=== PATIENT | female | born 1950 | race Caucasian/White ===

== ENCOUNTER → 2016-07-14 | Outpatient (CLI) | payer MEDICARE ==
[~2016-07-14] MED LIST: ASPI-110 PO; ASPI325T PO; ATOR40TA16 PO; COEN400C PO; COZA100T PO; DULO20 PO; FISH1200 PO; LIPI40TA PO; LOSA100T PO; METO50TA PO; OMEG12002 PO; OMEP20CA5 PO; OXYC-360 PO; OXYC-432 PO; OXYC1SOL5 PO; SACC1CAP3 PO
[2016-07-14 10:02] LABS: AUTOMATED NEUTROPHIL # 3.5 TH/MM3 (1.8-7.7); BASOPHIL # 0.1 TH/MM3 (0-0.2); EOSINOPHIL # 0.2 TH/MM3 (0-0.4); EOSINOPHIL % 2.8 % (0.0-4.0); HEMATOCRIT 38.7 % (35.0-46.0); HEMO FLAGS DIFF FINAL; LYMPH % 27.7 % (9.0-44.0); LYMPHOCYTE # 1.6 TH/MM3 (1.0-4.8); MEAN CELL VOLUME 84.4 FL (80.0-100.0); MEAN CORPUSCULAR HEMOGLOBIN 28.3 PG (27.0-34.0); MEAN CORPUSCULAR HGB CONC 33.5 % (32.0-36.0); MONO % 6.1 % (0.0-8.0); NEUT % 62.4 % (16.0-70.0); PLATELET COUNT 211 TH/MM3 (150-450); RED BLOOD COUNT 4.58 MIL/MM3 (4.00-5.30); RED CELL DISTRIBUTION WIDTH 15.2 % (11.6-17.2); WHITE BLOOD COUNT 5.7 TH/MM3 (4.0-11.0)
[2016-07-14 10:27] LABS: ALKALINE PHOSPHATASE 69 U/L (45-117); ALT (GPT) 25 U/L (10-53); ANION GAP 8 MEQ/L (5-15); AST (GOT) 19 U/L (15-37); BLOOD UREA NITROGEN 20 MG/DL (7-18); CHLORIDE 105 MEQ/L (98-107); GLOMERULAR FILTRATION RATE 38 ML/MIN (>89); GLUCOSE,FASTING 103 MG/DL (74-99); HDL CHOLESTEROL 79.9 MG/DL (40.0-60.0); LDL CHOLESTEROL 78 MG/DL (0-99); POTASSIUM 4.4 MEQ/L (3.5-5.1); SODIUM (NA) 140 MEQ/L (136-145); TOTAL BILIRUBIN ADULT 0.6 MG/DL (0.2-1.0); URIC ACID 6.6 MG/DL (2.6-6.0)
== END ==
LOC: CLAB 09:38
PROVIDERS: ATTEND Family Medicine
DX: I10 Essential (primary) hypertension (principal); E78.2 Mixed hyperlipidemia; N28.9 Disorder of kidney and ureter, unspecified; K21.9 Gastro-esophageal reflux disease without esophagitis; M10.00 Idiopathic gout, unspecified site
CPT/HCPCS: 36415; 80053; 80061; 84550; 85025

== ENCOUNTER 2016-10-31 07:47 | Inpatient (IN) | payer MEDICARE ==
[~2016-10-31] VITALS: Ht 160 cm; Wt 119.6 kg
[2016-11-12] MEDS ORDERED: ATOR40TA16 PO (10:26)
[2016-11-12] MEDS ORDERED: LOSA100T PO (10:26)
[2016-11-12] MEDS ORDERED: OXYC-432 PO (10:26)
[2016-11-12] MEDS ORDERED: COEN400C PO (10:26)
[2016-11-12] MEDS ORDERED: ASPI-110 PO (10:26)
[2016-11-12] MEDS ORDERED: FISH1200 PO (10:26)
[2016-11-12] MEDS ORDERED: SACC1CAP3 PO (10:26)
[2016-11-12] MEDS ORDERED: METO50TA PO (10:26)
[2016-11-12] MEDS ORDERED: DULO20 PO (10:26)
--- NOTE | 2016-11-27 12:39 | MH ---
cc: CHRISTO OCASIO DATE OF ADMISSION: 12/03/2016 ADMISSION DIAGNOSIS Osteoarthritis of the left shoulder, complete rotator cuff tear left shoulder and pain of the left shoulder. HISTORY OF PRESENT ILLNESS The patient is a 66-year-old white female who has had a rather lengthy history of pain involving her left shoulder region extending back at least 5 years. She had noted the gradual onset of soreness generalized about the shoulder area unrelated to injury or unusual activity. During this interval of time she conformed to conservative management which included taking both Naprosyn and Percocet for pain management. Her pain persisted for which she was seen by the undersigned physician in March of 2014. At that time x-ray studies of the left shoulder revealed obvious degenerative change with pronounced narrowing of the glenohumeral articulation. The patient elected to continue with conservative management for which she was prescribed meloxicam 15 mg daily and initiated into physical therapy. She continued with this routine over the following few years during which time she became progressively symptomatic with pain involving her right shoulder. She subsequently underwent a right reverse shoulder arthroplasty in October of 2015, reporting an uneventful recovery thereafter. During this interval of time she noted lingering symptoms involving her left shoulder but became increasingly more symptomatic for which she returned to the office in July of this year. At that time she was reporting obvious difficulty conforming to activities of daily living for which she had continued to take naproxen in addition to a baby aspirin with minimal benefit described. Her x-ray studies revealed obvious degenerative changes with significant compromise of the glenohumeral joint and hypertrophic bony reaction. The patient subsequently underwent a CT scan evaluation of her left shoulder. The results of which identified severe glenohumeral joint arthrosis with a linear full-thickness tear of the distal supraspinatus and infraspinatus tendon. The patient continued with pain about her shoulder area for which she expressed her desire to proceed with a more definitive course of treatment. Once again the involvement of reverse shoulder arthroplasty was outlined in detail with emphasis being made that the decision to proceed with surgery would be left entirely to the patient's discretion. The patient indicated that she had definitely arrived at that point in time and expressed her desire to proceed accordingly. In compliance with her wishes she was scheduled for admission at this time in order that left reverse shoulder arthroplasty be accomplished. PAST MEDICAL HISTORY/HOSPITALIZATIONS AND SURGERIES 1. In addition to her right reverse shoulder arthroplasty include 2. Tonsillectomy. 3. Abdominal hysterectomy. 4. Cholecystectomy. 5. Bilateral Lasik surgery. 6. [place] teeth extraction. 7. Reduction mammoplasty. 8. Panendoscopy. 9. Arthroscopic surgery of the knees. 10. Hemiarthroplasty left knee. 11. Total knee arthroplasty right knee. 12. Medical management for gastritis and pyloric stenosis as well as a history of 13. Non A, non B hepatitis. 14. She has also undergone lumbar laminectomy with fusion. MEDICAL ILLNESS 1. Hypertension. 2. Anxiety. 3. Elevated cholesterol. 4. Arthritis. MEDICATIONS Current medications: 1. Metoprolol 50 mg twice daily. 2. Losartan 100 mg daily. 3. Hydrochlorothiazide 25 mg daily. 4. Duloxetine 30 mg daily. 5. Aleve 220 mg daily. 6. Lipitor 40 mg daily. 7. Co Q-10 200 mg daily. 8. Fish oil 1200 mg twice daily. 9. Probiotic daily. 10. Percocet 5/325 p.r.n. 11. 81 mg aspirin tablet daily. ALLERGIES The patient describes drug allergies to: ZYVOX WHICH HAS CAUSED HIVES AND SWELLING. HYDROCODONE HAS BEEN ASSOCIATED WITH NAUSEA AND VOMITING. The patient does tolerate oxycodone. REVIEW OF SYSTEMS She wears glasses. Occasional sinus congestion. No headache, seizure or syncope. No epistaxis. Auditory acuity intact. No tinnitus. No bleeding gums or dysphagia. Denies cough, shortness of breath, upper respiratory infection. She has had pneumonia in the past. No tuberculosis. No angina or heart disease. She is medically managed for hypertension. Appetite good. Bowel movements are regular. History of chronic gastritis status post cholecystectomy. History of hemorrhoids and kidney stones. No urinary tract infection. No previous fractures. No psychiatric illness. Her remaining review of systems is unremarkable and noncontributory. FAMILY HISTORY The patient has been for at least 38 years. She has one son and one daughter, both indicated to be in good health. Her family history is positive for heart disease. SOCIAL HISTORY The patient completed a college degree. 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 Denies active use of tobacco and ethanol. PHYSICAL EXAMINATION VITAL SIGNS: Height 5 feet 3 inches, weight 253 pounds. GENERAL: An alert, oriented and responsive 66-year-old white female sitting quietly upon the examination table with no apparent distress. HEENT: Pupils are equally round and reactive to light. Extraocular movements full. Sclerae are clear. External nares clear. External auditory canals clear. Dental intact. Mucous membranes pink and moist. Pharynx clear. NECK: Supple. Active mobility without pain. Carotid pulse palpable bilaterally. Trachea midline. Thyroid without enlargement. LUNGS: Clear to auscultation and percussion. No CVA tenderness. No discomfort throughout the dorsolumbar spine. HEART: Irregular rhythm without murmur or gallop. ABDOMEN: Abdomen is obese, soft, nontender. Bowel sounds present. PELVIC: Per primary care physician. EXTREMITIES: Left shoulder, there is tenderness about the anterior aspect of the shoulder without palpable deformity. Limited mobility of the shoulder joint with the patient able to actively posture her hand above her head but not fully extended to a full overhead orientation. Cross-arm posturing with placing the left hand on the right shoulder is actively accomplished, internal rotation to the posterior waist level, abduction is limited at approximately 60 degrees, crepitation is elicited about the glenohumeral joint. Drop arm test positive. Mild weakness of both internal and external rotation. Hair Machine Operator strength intact. Sensory intact. NEUROLOGIC: Cranial nerves II-XII grossly intact. IMPRESSION Osteoarthritis left shoulder, complete rotator cuff tear left shoulder, pain left shoulder. PLAN Left reverse shoulder arthroplasty. The nature of the planned surgical procedure, the potential complications and risks associated, the expectations of surgery and the consent form were thoroughly reviewed with the patient prior to her admission to the hospital. Blanca has indicated her full understanding regarding all of the above and given consent to proceed with treatment as outlined. Medical evaluation and clearance for surgery will be completed by her primary care physician Dr. Cande Flores. Christo Ocasio MD NBS/TLL /11:51 AM /12:18 PM
[2016-12-03] MEDS ORDERED: INSULIN HUMAN REGULAR 1,000 UNITS/10 ML VIAL SQ PRN (05:45)
[2016-12-03] MEDS ORDERED: LACTATED RINGER'S 1000 ML IV PRN (05:45)
[2016-12-03] MEDS ORDERED: CHLORHEXIDINE GLUCONATE 2 % 1 PACK (2 CLOTHS) TOPICAL PRN (05:45)
[2016-12-03] MEDS ORDERED: POVIDONE IODINE 5% (ANTISEPSIS KIT) 4 APPLICATIONS EACH NARE PRN (05:45)
[2016-12-03] MEDS ORDERED: METOPROLOL TARTRATE 25 MG TAB PO PRN (05:45)
[2016-12-03] MEDS ORDERED: SODIUM CHLORID 0.9% 500 ML IV PRN (05:45)
[2016-12-03] MEDS ORDERED: POVIDONE IODINE 7.5% SCRUB 118 ML BOTTLE TOPICAL SCH (06:00)
[2016-12-03] MEDS ORDERED: ceFAZolin 2 GM PREMIX 50 ML IV SCH (06:00)
[2016-12-03] MEDS ORDERED: UBID200C3 PO (06:01)
[2016-12-03 06:02] VITALS: BP 169/81; PULSE 73; RESP 18; TEMP 98.8; O2SAT 96
[2016-12-03] MEDS ORDERED: ceFAZolin INJ 1,000 MG VIAL ONE (06:21)
[2016-12-03] MEDS ORDERED: ACETAMINOPHEN 1000 MG/100 ML VIAL IV ONE (06:23)
[2016-12-03] MEDS ORDERED: DEXAMETHASONE SOD PHOS 4 MG/ML VIAL ONE (06:23)
[2016-12-03] MEDS ORDERED: FAMOTIDINE 20 MG/2 ML VIAL ONE (06:23)
[2016-12-03] MEDS ORDERED: ONDANSETRON HCL 4 MG/2 ML VIAL ONE (06:43)
[2016-12-03] MEDS ORDERED: APREPITANT 40 MG CAP ONE (06:43)
[2016-12-03] MEDS ORDERED: TRANEXAMIC ACID 1 GM PRIOR TO PROCEDURE IV SCH ×2 (07:00)
[2016-12-03] MEDS ORDERED: ROPIVACAINE 0.5% PF INJ 30 ML VIAL NERV BLOCK ONE (08:44)
[2016-12-03] MEDS ORDERED: TRANEXAMIC ACID 1 GM POST-OP IV SCH ×2 (09:30)
[2016-12-03] MEDS ORDERED: Post-op Orders (for Pharmacy) MISC XX ONE (10:07)
[2016-12-03] MEDS ORDERED: DO NOT ADM ANY ANTICOAGULANT DRUGS PRN (10:07)
[2016-12-03] MEDS ORDERED: *ONDANSETRON 4 MG VIAL PERIprocedural Use ONLY ONE (10:12)
[2016-12-03] MEDS ORDERED: fentaNYL CITRATE 250 MCG/5 ML AMP ONE (10:18)
[2016-12-03] MEDS: DEXT 5%-NACL 0.45% 1000 ML INJ 1,000 ML IV SCH ×3 (10:18→21:03)
[2016-12-03] MEDS ORDERED: MIDAZOLAM HCL 2 MG/2 ML VIAL ONE (10:18)
[2016-12-03] MEDS ORDERED: ONDANSETRON HCL 4 MG/2 ML VIAL IVP PRN (10:30)
[2016-12-03] MEDS ORDERED: MISCELLANEOUS PHARMACY INFORMATION XX ONE (10:30)
[2016-12-03] MEDS ORDERED: ZOLPIDEM TARTRATE 5 MG TAB PO PRN (10:30)
[2016-12-03] MEDS ORDERED: diphenhydrAMINE HCL 25 MG CAP PO PRN (10:30)
[2016-12-03] MEDS ORDERED: oxyCODONE/ACETAMINOPHEN 5 MG/325 MG TAB PO PRN (10:30)
[2016-12-03] MEDS ORDERED: TRANEXAMIC ACID INJ 1,000 MG in SODIUM CHLORIDE 0.9% INJ 100 ML IV SCH (10:30)
[2016-12-03] MEDS ORDERED: SODIUM CHLORIDE 0.9% FLUSH 5 ML FLUSH IVF PRN (10:30)
[2016-12-03] MEDS ORDERED: BISACODYL 10 MG SUPP RECTAL PRN (10:30)
[2016-12-03] MEDS ORDERED: NALOXONE HCL 0.4 MG/ML AMP IV PRN (10:30)
--- NOTE | 2016-12-03 10:49 | MP ---
cc: CHRISTO OCASIO DATE OF SURGERY: 12/03/2016 PREOPERATIVE DIAGNOSIS 1. Osteoarthritis of the left shoulder. 2. Complete rotator cuff tear left shoulder. 3. Pain left shoulder. POSTOPERATIVE DIAGNOSIS 1. Osteoarthritis of the left shoulder. 2. Complete rotator cuff tear left shoulder. 3. Pain left shoulder. PROCEDURE Left reverse shoulder arthroplasty. SURGEON Ninfa ANESTHESIA General endotracheal. INDICATIONS A 66-year-old white female with a lengthy history of pain involving her left shoulder extending back at least five years. She noted the gradual onset of soreness generalized about the shoulder area unrelated to injury or unusual activity. During this interval of time she conformed to conservative management which included taking Naprosyn and Percocet for pain management. Her pain persisted for which she was later seen by the undersigned physician in March 2014. At that time x-ray studies revealed obvious degenerative changes with pronounced narrowing of the glenohumeral articulation. The patient elected to continue with conservative management for which she was prescribed meloxicam 15 mg daily and initiated into physical therapy. She continued with his routine over the following few years at which time she became progressively more symptomatic with pain involving her shoulder area. She did undergo a right reverse shoulder arthroplasty in October 2015 reporting an uneventful recovery thereafter. During this interval of time she noted lingering symptoms involving her left shoulder which became increasingly more symptomatic for which she returned to the office in July of this year. At that time she reported obvious difficulties conforming to activities of daily living for which she had continued to take naproxen in addition to a baby aspirin was minimal benefit described. Her current x-ray studies revealed obvious degenerative changes with significant compromise of the glenohumeral joint and hypertrophic bony reaction. The patient subsequently underwent a CT scan evaluation of the left shoulder the results of which identified severe glenohumeral joint arthrosis with a linear full-thickness tear of the distal supraspinatus and infraspinatus tendon. The patient continued to experience pain about her shoulder area for which she expressed her desire to proceed with a more definitive course of treatment. Once again the involvement of reverse shoulder arthroplasty was outlined in detail with emphasis being made that the decision to proceed with surgery would be left entirely to the patient's discretion. The patient indicated that she had definitely arrived at that point in time and expressed her desire to proceed accordingly. In compliance with her wishes she was scheduled for admission at this time in order that left reverse shoulder arthroplasty be accomplished. FORMAT Following the induction of satisfactory general anesthesia by endotracheal intubation as completed per the Department of Anesthesia, the patient was positioned upon the operating table in a modified beach-chair configuration. A sheet roll was established along the vertebral border of the left scapula and the left shoulder and upper extremity proper were isolated with a U-drape. Thereafter the shoulder and upper extremity proper were prepped with Betadine solution and draped into a sterile field in the routine manner. Prior to initiation of the actual procedure the standard timeout protocol was completed, all parameters appropriately addressed and confirmed by operating room personnel. A standard anterior approach to the shoulder was initiated through a sharp skin incision extending from the inferior margin of the clavicle oriented overlying the deltopectoral interval and extending distally to the axillary crease. The incision was developed through underlying subcutaneous tissue with hemostasis maintained by electrocautery. By deepening dissection the deltopectoral interval was identified, distally the cephalic vein was exposed and in a distal to proximal orientation the interval was developed with the cephalic vein retracted in a lateral orientation with a cuff of deltoid musculature. Digital maneuvering facilitated release of subdeltoid adhesions and thereafter the coracoid process was utilized as an anatomical landmark. With the shoulder maintained in a slightly externally rotated posture the biceps tendon was exposed. A limited release of the pectoralis insertion was completed and thereafter the biceps tendon was divided proximally and the distal segment being tenodesed to the stump of the pectoralis tendon the excess portion of the biceps tendon being excised. The three sister circumflex vessels were identified, clamped and coagulated. With the shoulder again maintained in an externally rotated orientation the subscapularis tendon was divided in a superior to inferior orientation along the margin of the anatomical neck of the humerus facilitating exposure of the humeral head as it was delivered into the wound. The more medial aspect of the subscapularis tendon was tagged with #1 Tycron suture as well as a minimal residual cuff of tissue being maintained about the lesser tuberosity. With the humeral head fully exposed an entry point was facilitated superiorly adjacent to the bicipital groove facilitating entry into the humeral shaft. Sequential rasping was accomplished from 6 through 13 mm. With the [address] the external cutting guide was oriented approximately 30 degrees of retroversion and the humeral head thereafter resected. Examination revealed significant degenerative changes with complete erosion of articular cartilage and subchondral bone exposed. Residual osteophytes and hypertrophic bone around the margin of the proximal humerus were resected with rongeur and thereafter sequential broaching was completed from 7 through 13 mm. The 13 mm broach was determined to be a stable fit. The covering cap was positioned over the broach and attention was thereafter redirected to the glenoid. Retractors were placed superiorly, posteriorly and anteriorly where after the residual stump of the biceps tendon was resected as was the glenoid labrum and the middle and inferior glenohumeral ligaments. With the glenoid adequately exposed in a 360 degree orientation hash antoine were placed from the 12-6 o'clock position and the 9-3 o'clock position facilitating orientation of the central portion of the glenoid. A guide pin was placed in this central point utilizing the glenoid guide with approximately 10 degrees of inferior tilt. With the guide pin in place the step-down reamer was passed over the guide pin creating a central peg hole. Thereafter a 25 mm glenosphere mini baseplate was firmly seated and thereafter a 35 mm central screw was placed and peripheral locking screws in the 12 and 6 o'clock position utilizing 25 and 20 mm screws respectively and 15 mm locking screws in the anterior and posterior position. With the baseplate firmly seated a 36 mm glenosphere with maximum inferior offset was firmly attached to the baseplate. Attention was redirected to the proximal humerus. A trial reduction followed utilizing a 44 x 36 mm humeral bearing initially utilizing the standard and secondary trial with the +3 mm which was determined to be the more stable fit. The shoulder was readily reduced and carried through a passive range of motion with stability being demonstrated throughout the arc of mobility. An open dislocation was completed and trial components being removed the canal was thoroughly irrigated and dried. Two additional drill holes were placed in the proximal humerus for additional insertion of Tycron suture and thereafter the 13 mm mini humeral stem was firmly seated to which a 44 x 36 mm +3 humeral bearing attached to a 44 mm humeral tray was positioned and an open reduction completed and repeat range of motion again noted stability as previously described. Final irrigation was accomplished with hemostasis maintained. The subscapularis tendon was repaired with the previously attached #1 Tycron suture. The deltopectoral interval was repaired with a 0 Vicryl suture and the remaining portion of the wound was closed in layers in the routine manner. Skin margins were re-approximated with a running subcuticular 3-0 Vicryl suture over which Steri-Strips were applied. Xeroform gauze and a bulky dry sterile dressing were placed. The extremity was supported by an arm sling. Anesthesia was discontinued and the patient thus transferred to a hospital bed and returned to the recovery room in satisfactory condition having tolerated her operative procedure well. Estimated blood loss was approximately 200 cc as determined per Anesthesia. All implants were of the [employer] analytical research program manager. Christo Ocasio MD NBS/BT /10:11 AM /10:33 AM
--- NOTE | 2016-12-03 11:54 | RADRPT ---
EXAM DATE/TIME: 12/03/2016 10:52 [facility] COMPARISON: CHEST PA & LAT, October 16, 2015, 11:28. SHOULDER RIGHT (1VW), October 31, 2015, 11:11. INDICATIONS : Post op, left shoulder replacement. MEDICAL HISTORY : None. SURGICAL HISTORY : None. ENCOUNTER: Initial ACUITY: 1 day PAIN SCORE: 0/10 LOCATION: Left shoulder FINDINGS: Patient is status post placement of a left shoulder prosthesis. There is good position and alignment of the prosthesis and bony structures. The bony structures are grossly intact. Postsurgical changes a re present. CONCLUSION: Good position and alignment on this postoperative examination. Mansoor Farris MD on December 03, 2016 at 11:51 Board Certified Radiologist. This report was verified electronically.
[2016-12-03] MEDS: MORPHINE SULFATE 30 MG/30 ML PCA IV SCH (12:43)
[2016-12-03] MEDS: PCA - TOTAL MG MORPHINE DELIVERED PER SHIFT SCH ×2 (14:00→22:00)
[2016-12-03] MEDS ORDERED: PROPOFOL 200 MG/20 ML AMP IV ONE (14:26)
[2016-12-03] MEDS ORDERED: ePHEDrine/NS 25 MG/5 ML SYR IV ONE (14:26)
[2016-12-03] MEDS ORDERED: PHENYLEPHRINE HCL 10 MG/ML VIAL IV ONE (14:27)
[2016-12-03] MEDS ORDERED: LACTATED RINGER'S 1000 ML INJ 1,000 ML IV ONE (14:27)
[2016-12-03] MEDS ORDERED: SODIUM CHLOR 0.9% 250 ML INJ 250 ML IV ONE (14:27)
[2016-12-03] MEDS ORDERED: NEOSTIGMINE 3 MG/3 ML SYR IV ONE (14:27)
[2016-12-03] MEDS ORDERED: PHENYLEPH/NS 1000 MCG/10 ML SYR IV ONE (14:27)
[2016-12-03 15:57] VITALS: BP 154/71; PULSE 75; RESP 17; TEMP 96.1; O2SAT 93
[2016-12-03 18:29] VITALS: O2SAT 93
--- NOTE | 2016-12-03 18:56 | PD.CONS ---
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 ocasio's service for chronic left shoulder pain worsening over time. Patient states increasing pain and decreasing range of motion prompted the surgery. Patient currently is on a LIBRARY ASSISTANT pump with good pain control. Denies any nausea vomiting or any pain currently. [facility] factors. Review of Systems Constitutional: DENIES: Fever, Weight loss, Chills, Change in appetite Eyes: DENIES: Blurred vision, Double Vision Ears, nose, mouth, throat: DENIES: Tinnitus, Ear Pain, Epistaxis, Odynophagia Respiratory: DENIES: Cough, Hemoptysis, Sputum production, Shortness of breath Cardiovascular: DENIES: Chest pain, Palpitations, Dyspnea on Exertion, Lower Extremity Edema, Orthopnea Gastrointestinal: DENIES: Black stools, Bloody stools, Difficulty Swallowing, Anorexia Genitourinary: DENIES: Urgency, Hematuria, Vaginal discharge Musculoskeletal: DENIES: Joint pain, Stiffness Integumentary: DENIES: Pruritus Hematologic/lymphatic: DENIES: Bruising Immunologic/allergic: DENIES: Urticaria Neurologic: DENIES: Headache, Speech Problems, Tremor Psychiatric: DENIES: Suicidal Ideation, Homicidal Ideation Past Family Social History Allergies: Coded Allergies: Bactrim (Verified Allergy, Severe, SWELLING, 12/03/16) Zyvox (Verified Allergy, Severe, LIPS AND EYES SWELL, 12/03/16) Hydrocodone (Verified Adverse Reaction, Severe, NAUSEA & VOMITTING, 12/03/16 ) Talwin (Verified Adverse Reaction, Severe, NAUSEA/VOMITING, 12/03/16) Past Medical History Hypertension Osteoarthritis Past Surgical History Multiple surgeries in the past Tonsillectomy, abdominal hysterectomy, cholecystectomy, Lasix surgery, reduction mammoplasty, arthroscopic surgery of the knees, hemiarthroplasty of the left knee, total knee arthroplasty right knee Reported Medications Reported medications metoprolol 50 mg daily twice a day losartan 100 mg daily. Paroxetine 30 mg daily Lipitor 40 mg daily coenzyme Q, fish oral, Percocet when necessary, aspirin 81 mg. Active Ordered Medications See EMR Family History Noncontributory Social History Quit smoking in 1982 Very rare alcohol use History of substance abuse Physical Exam Vital Signs Vital Signs Date Time Temp Pulse Resp B/P Pulse Ox O2 Delivery O2 Flow Rate FiO2 12/03/16 15:57 96.1 75 17 154/71 93 12/03/16 15:45 98.5 81 15 119/56 95 Nasal Cannula 2 12/03/16 15:30 78 15 114/57 95 Nasal Cannula 2 12/03/16 15:00 81 17 118/56 95 Nasal Cannula 2 12/03/16 14:30 80 17 119/56 95 Nasal Cannula 2 12/03/16 14:00 81 16 116/57 95 Nasal Cannula 2 12/03/16 13:30 79 15 120/59 97 Nasal Cannula 2 12/03/16 13:00 76 16 124/59 97 Nasal Cannula 2 12/03/16 12:43 15 12/03/16 12:30 68 17 120/56 97 Nasal Cannula 2 12/03/16 12:00 77 16 127/60 95 Nasal Cannula 2 12/03/16 11:45 67 15 123/58 95 Nasal Cannula 2 12/03/16 11:15 66 15 118/58 94 Nasal Cannula 2 12/03/16 11:00 60 15 127/56 95 Nasal Cannula 3 12/03/16 10:45 68 14 122/60 93 Nasal Cannula 3 12/03/16 10:30 69 15 129/59 92 Nasal Cannula 3 12/03/16 10:13 98.8 87 14 134/79 93 Nasal Cannula 3 12/03/16 06:02 98.8 73 18 169/81 96 Physical Exam GENERAL: , in no apparent distress. SKIN: No rashes, ecchymoses or lesions. Cool and dry. HEAD: Atraumatic. Normocephalic. No temporal or scalp tenderness. EYES: Pupils equal round and reactive. Extraocular motions intact. No scleral icterus. No injection or drainage. ENT: Nose without bleeding, purulent drainage or septal hematoma. Throat without erythema, tonsillar hypertrophy or exudate. Uvula midline. Airway patent. NECK: Trachea midline. No JVD or lymphadenopathy. Supple, nontender, no meningeal signs. CARDIOVASCULAR: Regular rate and rhythm without murmurs, gallops, or rubs. RESPIRATORY: Clear to auscultation. Breath sounds equal bilaterally. No wheezes , rales, or rhonchi. GASTROINTESTINAL: Abdomen soft, non-tender, nondistended. . No guarding. Flabby soft MUSCULOSKELETAL: Extremities without clubbing, cyanosis, or edema. No joint tenderness, effusion, or edema noted. No calf tenderness. Negative Homans sign bilaterally. Left shoulder with postop dressing in place NEUROLOGICAL: Awake and alert. Cranial nerves II through XII intact. Motor and sensory grossly within normal limits. Five out of 5 muscle strength in all muscle groups. Normal speech. Laboratory Vital Signs Date Time Temp Pulse Resp B/P Pulse Ox O2 Delivery O2 Flow Rate FiO2 12/03/16 15:57 96.1 75 17 154/71 93 12/03/16 15:45 98.5 81 15 119/56 95 Nasal Cannula 2 12/03/16 15:30 78 15 114/57 95 Nasal Cannula 2 12/03/16 15:00 81 17 118/56 95 Nasal Cannula 2 12/03/16 14:30 80 17 119/56 95 Nasal Cannula 2 12/03/16 14:00 81 16 116/57 95 Nasal Cannula 2 12/03/16 13:30 79 15 120/59 97 Nasal Cannula 2 12/03/16 13:00 76 16 124/59 97 Nasal Cannula 2 12/03/16 12:43 15 12/03/16 12:30 68 17 120/56 97 Nasal Cannula 2 12/03/16 12:00 77 16 127/60 95 Nasal Cannula 2 12/03/16 11:45 67 15 123/58 95 Nasal Cannula 2 12/03/16 11:15 66 15 118/58 94 Nasal Cannula 2 12/03/16 11:00 60 15 127/56 95 Nasal Cannula 3 12/03/16 10:45 68 14 122/60 93 Nasal Cannula 3 12/03/16 10:30 69 15 129/59 92 Nasal Cannula 3 12/03/16 10:13 98.8 87 14 134/79 93 Nasal Cannula 3 12/03/16 06:02 98.8 73 18 169/81 96 Imaging Last Impressions Shoulder X-Ray 12/03/16 0000 Signed Impressions: Service Date/Time: Saturday, December 03, 2016 10:52 - CONCLUSION: Good position and alignment on this postoperative examination. Mansoor Farris MD Assessment and Plan Assessment and Plan 66-year-old female right-handed admitted for Osteoarthritis of the left shoulder status post Left shoulder arthroplasty Dr. Ocasio following When necessary pain meds per primary service History of hypertension Continue on Lopressor Cozaar History of hyperlipidemia continue on statins History of depression/anxiety disorder continue on Cymbalta Patient placed on Xarelto for DVT prophylaxis PPI for GI prophylaxis patient states history of reflux in the past Thank you for this consult we'll follow patient in-house with you Maria Isabel Cobb MD Dec 03, 2016 18:56
[2016-12-03 20:05] VITALS: BP 116/56; PULSE 81; RESP 17; TEMP 96.6; O2SAT 93
[2016-12-03] MEDS ORDERED: UBIDECARENONE PO SCH (21:00)
[2016-12-03] MEDS: LACTOBACILLUS ACIDOPHILUS TAB PO SCH (21:00)
[2016-12-03] MEDS: SODIUM CHLORIDE 0.9% FLUSH 5 ML FLUSH IVF SCH (21:00)
[2016-12-03] MEDS: METOPROLOL TARTRATE 50 MG TAB PO SCH (21:03)
[2016-12-03] MEDS: ATORVASTATIN 40 MG TAB PO SCH (21:03)
[2016-12-03 21:27] VITALS: O2SAT 93
[2016-12-04] VITALS (7 sets, daily range): BP systolic 114–133; BP diastolic 53–60; PULSE 65–79; RESP 15–18; TEMP 96–98.3; O2SAT 94–97
[2016-12-04] MEDS: DEXT 5%-NACL 0.45% 1000 ML INJ 1,000 ML IV SCH ×3 (02:18→16:38)
[2016-12-04] MEDS: PCA - TOTAL MG MORPHINE DELIVERED PER SHIFT SCH ×3 (05:39→22:05)
[2016-12-04] MEDS ORDERED: OXYC1TAB63 PO (06:34)
[2016-12-04] MEDS ORDERED: ASPI325T PO (06:34)
--- NOTE | 2016-12-04 06:39 | HHI.FF ---
Face to Face Verification Diagnosis: (1) DJD of left shoulder Occupational Therapy Left UE Weight Bearing: WB as tolerated Left UE Range of Motion: Active ROM Additional Instructions limit external rotation to 30-45 degrees for initial 6 weeks post-op then progress as tolerated; otherwise follow routine TSA protocol. Nursing Dressing Changes: Daily dressing change I have seen patient Blanca Malave on 12/04/16. My clinical findings support the need for the requested home health care services because: Limited ability to care for self High risk of falls I certify that my clinical findings support that this patient is homebound because: Post-op weakness Unsteady gait/balance Unsafe to leave home unassisted Zac Ocasio MD Dec 04, 2016 06:39
[2016-12-04 07:23] LABS: HEMATOCRIT 31.9 % (35.0-46.0); REVIEW FLAG FINAL
[2016-12-04] MEDS: DULoxetine HCl DR 20 MG CAP PO SCH (08:28)
[2016-12-04] MEDS: METOPROLOL TARTRATE 50 MG TAB PO SCH ×2 (08:28→20:42)
[2016-12-04] MEDS: PANTOPRAZOLE SOD 40 MG DELAYED RELEASE TAB PO SCH (08:29)
[2016-12-04] MEDS: RIVAROXABAN 10 MG TAB PO SCH (08:29)
[2016-12-04] MEDS: SODIUM CHLORIDE 0.9% FLUSH 5 ML FLUSH IVF SCH ×2 (08:30→20:42)
[2016-12-04] MEDS: LOSARTAN 50 MG TAB PO SCH (08:30)
[2016-12-04] MEDS ORDERED: NON-FORMULARY DRUG (Omega-3 Fatty Acids (Fish Oil 1200 mg) 1,200 MG) PO SCH (09:00)
--- NOTE | 2016-12-04 10:14 | HHI.PR ---
Subjective Remarks sitting on the chair with no distress. pain is fairly controlled. no other complaints. Objective Vitals Vital Signs Date Time Temp Pulse Resp B/P Pulse Ox O2 Delivery O2 Flow Rate FiO2 12/04/16 10:08 94 21 12/04/16 07:58 98.1 70 15 116/60 96 12/04/16 05:39 17 12/04/16 04:15 97.8 71 17 116/53 96 12/04/16 00:10 98.2 79 18 117/56 94 12/03/16 22:00 18 12/03/16 21:27 93 Nasal Cannula 2.00 12/03/16 20:05 96.6 81 17 116/56 93 12/03/16 15:57 96.1 75 17 154/71 93 12/03/16 15:45 98.5 81 15 119/56 95 Nasal Cannula 2 12/03/16 15:30 78 15 114/57 95 Nasal Cannula 2 12/03/16 15:00 81 17 118/56 95 Nasal Cannula 2 12/03/16 14:30 80 17 119/56 95 Nasal Cannula 2 12/03/16 14:00 81 16 116/57 95 Nasal Cannula 2 12/03/16 13:30 79 15 120/59 97 Nasal Cannula 2 12/03/16 13:00 76 16 124/59 97 Nasal Cannula 2 12/03/16 12:43 15 12/03/16 12:30 68 17 120/56 97 Nasal Cannula 2 12/03/16 12:00 77 16 127/60 95 Nasal Cannula 2 12/03/16 11:45 67 15 123/58 95 Nasal Cannula 2 12/03/16 11:15 66 15 118/58 94 Nasal Cannula 2 12/03/16 11:00 60 15 127/56 95 Nasal Cannula 3 12/03/16 10:45 68 14 122/60 93 Nasal Cannula 3 12/03/16 10:30 69 15 129/59 92 Nasal Cannula 3 I/O 12/03/16 12/03/16 12/03/16 12/04/16 12/04/16 12/04/16 07:00 15:00 23:00 07:00 15:00 23:00 Intake Total 1100 ml 2422 ml 834 ml Output Total 200 ml 0 ml Balance 900 ml 2422 ml 834 ml Intake Oral 800 ml 480 ml IV Total 1122 ml 354 ml TPN/PPN 500 ml Other 1100 ml Output Urine Total 0 ml 0 ml Estimated Blood Loss 200 ml # Voids 1 1 # Bowel Movements 0 0 Result Diagram: 12/04/16 0553 Imaging Last Impressions Shoulder X-Ray 12/03/16 0000 Signed Impressions: Service Date/Time: Saturday, December 03, 2016 10:52 - CONCLUSION: Good position and alignment on this postoperative examination. Mansoor Farris MD Objective Remarks GENERAL: This is a well-nourished, well-developed patient, in no apparent distress. CARDIOVASCULAR: Regular rate and regular rhythm without murmurs, gallops, or rubs. RESPIRATORY: Clear to auscultation. Breath sounds equal bilaterally. No wheezes , rales, or rhonchi. GASTROINTESTINAL: Abdomen soft, non-tender, nondistended. Normal, active bowel sounds MUSCULOSKELETAL: Extremities without clubbing, cyanosis, or edema. NEURO: Alert & Oriented x4 to person, place, time, situation. Moves all ext x4 Medications and IVs Current Medications Lactated Ringer's 1,000 ml @ 30 mls/hr Q24H PRN IV SEE LABEL COMMENTS Last administered on 12/03/16 06:02; Start 12/03/16 at 05:45; Stop 12/03/16 at 12:36; Status DC Sodium Chloride (NS 500 ml Inj) 500 ml @ 30 mls/hr [id number] PRN IV SEE LABEL COMMENTS; Start 12/03/16 at 05:45; Stop 12/03/16 at 12:36; Status DC Metoprolol Tartrate (Lopressor) 25 mg NURSING CARE ATTENDANT PRN PO SEE LABEL COMMENTS; Start 12/03/16 at 05:45; Stop 12/06/16 at 05:44 Povidone Iodine (Betadine 5% Antisepsis Kit) 1 applic NURSING CARE ATTENDANT PRN EACH NARE SEE LABEL COMMENTS Last administered on 12/03/16 06:10; Start 12/03/16 at 05:45; Stop 12/06/16 at 05:44 Chlorhexidine Gluconate (Chlorhexidine 2% Cloth) 3 pack NURSING CARE ATTENDANT PRN TOPICAL SEE LABEL COMMENTS Last administered on 12/03/16 05:45; Start 12/03/16 at 05:45; Stop 12/06/16 at 05:44 Insulin Human Regular (NovoLIN R INJ) See Protocol Table ... NURSING CARE ATTENDANT PRN SQ SEE PROTOCOL TABLE; Start 12/03/16 at 05:45; Stop 12/06/16 at 05:44 Povidone Iodine 1 applic 1 applic ONCE TOPICAL Last administered on 12/03/16 06 :19; Start 12/03/16 at 06:00; Stop 12/06/16 at 05:59 Cefazolin Sodium/ Dextrose 50 ml @ 100 mls/hr NURSING CARE ATTENDANT IV Last administered on 12/03/16 06:05; Start 12/03/16 at 06:00; Stop 12/03/16 at 12:41; Status DC Tranexamic Acid 1000 mg/Sodium Chloride 110 ml @ 220 mls/hr ONCE IV Last administered on 12/03/16 06:16; Start 12/03/16 at 07:00; Stop 12/03/16 at 13:00; Status DC Tranexamic Acid/ Sodium Chloride (Cyklokapron Inj/ NS Inj) 110 ml @ 220 mls/hr ONCE IV Last administered on 12/03/16 09:10; Start 12/03/16 at 09:30; Stop at 15:30; Status DC Cefazolin Sodium (Ancef Inj) 2,000 mg STK-MED ONCE .ROUTE Last administered on 12/03/16 07:46; Start 12/03/16 at 06:21; Stop 12/03/16 at 06:22; Status DC Acetaminophen (Ofirmev Inj) 1,000 mg STK-MED ONCE IV ; Start 12/03/16 at 06:23; Stop 12/03/16 at 06:24; Status DC Famotidine (Pepcid Inj) 20 mg STK-MED ONCE .ROUTE ; Start 12/03/16 at 06:23; Stop 12/03/16 at 06:24; Status DC Dexamethasone Sodium Phosphate (Decadron Inj) 4 mg STK-MED ONCE .ROUTE ; Start 12/03/16 at 06:23; Stop 12/03/16 at 06:24; Status DC Aprepitant (Emend) 40 mg STK-MED ONCE .ROUTE ; Start 12/03/16 at 06:43; Stop 12/03 at 06:44; Status DC Ondansetron HCl (Zofran Inj) 4 mg STK-MED ONCE .ROUTE ; Start 12/03/16 at 06:43; Stop 12/03/16 at 06:44; Status DC Ropivacaine (Naropin 0.5% Pf Inj) 20 ml STK-MED ONCE NERV BLOCK ; Start 12/03/16 at 08:44; Stop 12/03/16 at 08:45; Status DC Ondansetron HCl (*ZOFRAN INJ PERIprocedural ONLY) 4 mg STK-MED ONCE .ROUTE Last administered on 12/03/16 10:14; Start 12/03/16 at 10:12; Stop 12/03/16 at 10: 13; Status DC Midazolam HCl (Versed Inj) 2 mg STK-MED ONCE .ROUTE ; Start 12/03/16 at 10:18; Stop 12/03/16 at 10:19; Status DC Fentanyl Citrate 250 mcg 250 mcg STK-MED ONCE .ROUTE ; Start 12/03/16 at 10:18; Stop 12/03/16 at 10:19; Status DC Dextrose/Sodium Chloride (D5W-1/2 NS 1000 ml Inj) 1,000 ml @ 125 mls/hr Q8H IV Last administered on 12/03/16 21:03; Start 12/03/16 at 10:18 IV Flush (NS Flush) 2 ml UNSCH PRN IVF FLUSH AFTER USING IV ACCESS; Start at 10:30 IV Flush 2 ml 2 ml BID IVF Last administered on 12/04/16 08:30; Start 12/03/16 at 21:00 Cefazolin Sodium/ Sodium Chloride (Ancef Inj/NS Inj) 100 ml @ 200 mls/hr Q6H IV Last administered on 12/04/16 00:22; Start 12/03/16 at 12:30; Stop 12/04/16 at 00:59; Status DC Miscellaneous Information (Post-op Orders (for Pharmacy)) STAT ONCE XX ; Start 12/03/16 at 10:07; Stop 12/03/16 at 12:37; Status DC Rivaroxaban (Xarelto) 10 mg Q24H PO Last administered on 12/04/16 08:29; Start 12/04/16 at 09:00 Miscellaneous Medication ([facility] Pharmacy Information) ONCE ONCE XX ; Start 12/03 at 10:30; Stop 12/03/16 at 12:36; Status DC Oxycodone/ Acetaminophen (Percocet 5-325 Mg) 1 tab Q4H PRN PO PAIN LESS THAN 5 ON SCALE; Start 12/03/16 at 10:30 Oxycodone/ Acetaminophen 2 tab 2 tab Q4H PRN PO PAIN SCALE 5 TO 10; Start at 10:30 Tranexamic Acid/ Sodium Chloride (Cyklokapron Inj/ NS Inj) 110 ml @ 200 mls/hr UNSCH IV ; Start 12/03/16 at 10:30; Stop 12/03/16 at 12:36; Status DC Ondansetron HCl (Zofran Inj) 4 mg Q6H PRN IVP NAUSEA OR VOMITING; Start at 10:30 Zolpidem Tartrate (Ambien) 5 mg HS PRN PO SLEEP; Start 12/03/16 at 10:30 Bisacodyl (Dulcolax Supp) 10 mg DAILY PRN RECTAL CONSTIPATION; Start 12/03/16 at 10:30 Naloxone HCl (Narcan Inj) 0.4 mg UNSCH PRN IV RESPIRATORY RATE LESS THAN 10; Start 12/03/16 at 10:30; Stop 12/05/16 at 10:29 Diphenhydramine HCl (Benadryl) 25 mg Q6H PRN PO ITCHING; Start 12/03/16 at 10:30 ; Stop 12/05/16 at 10:29 Morphine Sulfate (Morphine 1 Mg/ ml GLUE BONE CRUSHER) 30 mg UNSCH IV Last administered on 12:43; Start 12/03/16 at 10:30; Stop 12/05/16 at 10:29 GLUE BONE CRUSHER Dosage Infused (Pha) 1 Q8HR .XX RESPIRATORY RATE LESS THAN 10 Last administered on 12/04/16 05:39; Start 12/03/16 at 14:00; Stop 12/05/16 at 13:59 Miscellaneous Information ALL NURSING DEPARTME... UNSCH PRN .XX SEE LABEL COMMENTS; Start 12/03/16 at 10:07; Stop 12/04/16 at 10:06; Status DC Atorvastatin Calcium (Lipitor) 40 mg HS PO Last administered on 12/03/16 21:03 ; Start 12/03/16 at 21:00 Duloxetine HCl (Cymbalta Dr) 20 mg DAILY PO Last administered on 12/04/16 08:28 ; Start 12/04/16 at 09:00 Losartan Potassium (Cozaar) 100 mg DAILY PO ; Start 12/04/16 at 09:00 Metoprolol Tartrate (Lopressor) 50 mg BID PO Last administered on 12/04/16 08: 28; Start 12/03/16 at 21:00 Non-Formulary Medication 1,200 mg DAILY PO ; Start 12/04/16 at 09:00; Stop at 09:00; Status DC Lactobacillus Acidophilus (Lactinex) 1 tab HS PO ; Start 12/03/16 at 21:00 Non-Formulary Medication 1 cap HS PO ; Start 12/03/16 at 21:00; Stop 12/03/16 at 21:00; Status DC Pantoprazole Sodium (Protonix) 40 mg DAILY PO Last administered on 12/04/16 08: 29; Start 12/04/16 at 09:00 A/P Assessment and Plan A/P Osteoarthritis of the left shoulder status post Left shoulder arthroplasty continue with pain control- management per ortho. anemia- post-op ; will monitor History of hypertension; Continue on Lopressor Cozaar History of hyperlipidemia continue on statins History of depression/anxiety disorder continue on Cymbalta Patient placed on Xarelto for DVT prophylaxis PPI for GI prophylaxis patient states history of reflux in the past Alejandrina Velazquez MD Dec 04, 2016 10:14
[2016-12-04] MEDS: oxyCODONE/ACETAMINOPHEN 5 MG/325 MG TAB PO PRN (15:33)
[2016-12-04] MEDS: ATORVASTATIN 40 MG TAB PO SCH (20:42)
[2016-12-04] MEDS: LACTOBACILLUS ACIDOPHILUS TAB PO SCH (20:42)
[2016-12-05 00:10] VITALS: BP 136/62; PULSE 91; RESP 17; TEMP 100.1; O2SAT 95
[2016-12-05] MEDS: MORPHINE SULFATE 30 MG/30 ML PCA IV SCH (01:30)
[2016-12-05] MEDS: DEXT 5%-NACL 0.45% 1000 ML INJ 1,000 ML IV SCH ×2 (02:18→10:18)
[2016-12-05 04:05] VITALS: BP 141/59; PULSE 90; RESP 17; TEMP 98.8; O2SAT 98
[2016-12-05] MEDS: PCA - TOTAL MG MORPHINE DELIVERED PER SHIFT SCH (05:51)
[2016-12-05 07:56] VITALS: BP 127/48; PULSE 86; RESP 16; TEMP 99.7; O2SAT 96
[2016-12-05] MEDS: DULoxetine HCl DR 20 MG CAP PO SCH (09:00)
[2016-12-05] MEDS: SODIUM CHLORIDE 0.9% FLUSH 5 ML FLUSH IVF SCH (09:00)
--- NOTE | 2016-12-05 10:38 | HHI.PR ---
Subjective Remarks in no acute distress. pain is controlled. had some nausea earlier today which has resolved. no other complaints. Objective Vitals Vital Signs Date Time Temp Pulse Resp B/P Pulse Ox O2 Delivery O2 Flow Rate FiO2 12/05/16 07:56 99.7 86 16 127/48 96 12/05/16 05:51 16 12/05/16 04:05 98.8 90 17 141/59 98 12/05/16 01:30 16 12/05/16 00:10 100.1 91 17 136/62 95 12/04/16 22:05 16 12/04/16 20:40 98.3 67 17 121/57 96 12/04/16 16:00 97.9 66 18 133/55 97 12/04/16 14:30 16 12/04/16 12:00 96.0 65 16 114/58 95 I/O 12/04/16 12/04/16 12/04/16 12/05/16 12/05/16 12/05/16 07:00 15:00 23:00 07:00 15:00 23:00 Intake Total 834 ml 1440 ml 480 ml 480 ml Output Total 1600 ml Balance 834 ml -160 ml 480 ml 480 ml Intake Oral 480 ml 1440 ml 480 ml 480 ml IV Total 354 ml Output Urine Total 1600 ml # Voids 1 6 1 1 # Bowel Movements 0 0 0 Result Diagram: 12/04/16 0553 Imaging Last Impressions Shoulder X-Ray 12/03/16 0000 Signed Impressions: Service Date/Time: Saturday, December 03, 2016 10:52 - CONCLUSION: Good position and alignment on this postoperative examination. Mansoor Farris MD Objective Remarks GENERAL: This is a well-nourished, well-developed patient, in no apparent distress. CARDIOVASCULAR: Regular rate and regular rhythm without murmurs, gallops, or rubs. RESPIRATORY: Clear to auscultation. Breath sounds equal bilaterally. No wheezes , rales, or rhonchi. GASTROINTESTINAL: Abdomen soft, non-tender, nondistended. Normal, active bowel sounds MUSCULOSKELETAL: Extremities without clubbing, cyanosis, or edema. NEURO: Alert & Oriented x4 to person, place, time, situation. Moves all ext x4 Medications and IVs Current Medications Lactated Ringer's 1,000 ml @ 30 mls/hr Q24H PRN IV SEE LABEL COMMENTS Last administered on 12/03/16 06:02; Start 12/03/16 at 05:45; Stop 12/03/16 at 12:36; Status DC Sodium Chloride (NS 500 ml Inj) 500 ml @ 30 mls/hr [id number] PRN IV SEE LABEL COMMENTS; Start 12/03/16 at 05:45; Stop 12/03/16 at 12:36; Status DC Metoprolol Tartrate (Lopressor) 25 mg RECRUITMENT ADVERTISING MANAGER PRN PO SEE LABEL COMMENTS; Start 12/03/16 at 05:45; Stop 12/06/16 at 05:44 Povidone Iodine (Betadine 5% Antisepsis Kit) 1 applic RECRUITMENT ADVERTISING MANAGER PRN EACH NARE SEE LABEL COMMENTS Last administered on 12/03/16 06:10; Start 12/03/16 at 05:45; Stop 12/06/16 at 05:44 Chlorhexidine Gluconate (Chlorhexidine 2% Cloth) 3 pack RECRUITMENT ADVERTISING MANAGER PRN TOPICAL SEE LABEL COMMENTS Last administered on 12/03/16 05:45; Start 12/03/16 at 05:45; Stop 12/06/16 at 05:44 Insulin Human Regular (NovoLIN R INJ) See Protocol Table ... RECRUITMENT ADVERTISING MANAGER PRN SQ SEE PROTOCOL TABLE; Start 12/03/16 at 05:45; Stop 12/06/16 at 05:44 Povidone Iodine 1 applic 1 applic ONCE TOPICAL Last administered on 12/03/16 06 :19; Start 12/03/16 at 06:00; Stop 12/06/16 at 05:59 Cefazolin Sodium/ Dextrose 50 ml @ 100 mls/hr RECRUITMENT ADVERTISING MANAGER IV Last administered on 12/03/16 06:05; Start 12/03/16 at 06:00; Stop 12/03/16 at 12:41; Status DC Tranexamic Acid 1000 mg/Sodium Chloride 110 ml @ 220 mls/hr ONCE IV Last administered on 12/03/16 06:16; Start 12/03/16 at 07:00; Stop 12/03/16 at 13:00; Status DC Tranexamic Acid/ Sodium Chloride (Cyklokapron Inj/ NS Inj) 110 ml @ 220 mls/hr ONCE IV Last administered on 12/03/16 09:10; Start 12/03/16 at 09:30; Stop at 15:30; Status DC Cefazolin Sodium (Ancef Inj) 2,000 mg STK-MED ONCE .ROUTE Last administered on 12/03/16 07:46; Start 12/03/16 at 06:21; Stop 12/03/16 at 06:22; Status DC Acetaminophen (Ofirmev Inj) 1,000 mg STK-MED ONCE IV ; Start 12/03/16 at 06:23; Stop 12/03/16 at 06:24; Status DC Famotidine (Pepcid Inj) 20 mg STK-MED ONCE .ROUTE ; Start 12/03/16 at 06:23; Stop 12/03/16 at 06:24; Status DC Dexamethasone Sodium Phosphate (Decadron Inj) 4 mg STK-MED ONCE .ROUTE ; Start 12/03/16 at 06:23; Stop 12/03/16 at 06:24; Status DC Aprepitant (Emend) 40 mg STK-MED ONCE .ROUTE ; Start 12/03/16 at 06:43; Stop 12/03 at 06:44; Status DC Ondansetron HCl (Zofran Inj) 4 mg STK-MED ONCE .ROUTE ; Start 12/03/16 at 06:43; Stop 12/03/16 at 06:44; Status DC Ropivacaine (Naropin 0.5% Pf Inj) 20 ml STK-MED ONCE NERV BLOCK ; Start 12/03/16 at 08:44; Stop 12/03/16 at 08:45; Status DC Ondansetron HCl (*ZOFRAN INJ PERIprocedural ONLY) 4 mg STK-MED ONCE .ROUTE Last administered on 12/03/16 10:14; Start 12/03/16 at 10:12; Stop 12/03/16 at 10: 13; Status DC Midazolam HCl (Versed Inj) 2 mg STK-MED ONCE .ROUTE ; Start 12/03/16 at 10:18; Stop 12/03/16 at 10:19; Status DC Fentanyl Citrate 250 mcg 250 mcg STK-MED ONCE .ROUTE ; Start 12/03/16 at 10:18; Stop 12/03/16 at 10:19; Status DC Dextrose/Sodium Chloride (D5W-1/2 NS 1000 ml Inj) 1,000 ml @ 125 mls/hr Q8H IV Last administered on 12/03/16 21:03; Start 12/03/16 at 10:18 IV Flush (NS Flush) 2 ml UNSCH PRN IVF FLUSH AFTER USING IV ACCESS; Start at 10:30 IV Flush 2 ml 2 ml BID IVF Last administered on 12/04/16 08:30; Start 12/03/16 at 21:00 Cefazolin Sodium/ Sodium Chloride (Ancef Inj/NS Inj) 100 ml @ 200 mls/hr Q6H IV Last administered on 12/04/16 00:22; Start 12/03/16 at 12:30; Stop 12/04/16 at 00:59; Status DC Miscellaneous Information (Post-op Orders (for Pharmacy)) STAT ONCE XX ; Start 12/03/16 at 10:07; Stop 12/03/16 at 12:37; Status DC Rivaroxaban (Xarelto) 10 mg Q24H PO Last administered on 12/04/16 08:29; Start 12/04/16 at 09:00 Miscellaneous Medication ([facility] Information) ONCE ONCE XX ; Start 12/03 at 10:30; Stop 12/03/16 at 12:36; Status DC Oxycodone/ Acetaminophen (Percocet 5-325 Mg) 1 tab Q4H PRN PO PAIN LESS THAN 5 ON SCALE Last administered on 12/04/16 15:33; Start 12/03/16 at 10:30 Oxycodone/ Acetaminophen 2 tab 2 tab Q4H PRN PO PAIN SCALE 5 TO 10; Start at 10:30 Tranexamic Acid/ Sodium Chloride (Cyklokapron Inj/ NS Inj) 110 ml @ 200 mls/hr UNSCH IV ; Start 12/03/16 at 10:30; Stop 12/03/16 at 12:36; Status DC Ondansetron HCl (Zofran Inj) 4 mg Q6H PRN IVP NAUSEA OR VOMITING; Start at 10:30 Zolpidem Tartrate (Ambien) 5 mg HS PRN PO SLEEP; Start 12/03/16 at 10:30 Bisacodyl (Dulcolax Supp) 10 mg DAILY PRN RECTAL CONSTIPATION; Start 12/03/16 at 10:30 Naloxone HCl (Narcan Inj) 0.4 mg UNSCH PRN IV RESPIRATORY RATE LESS THAN 10; Start 12/03/16 at 10:30; Stop 12/05/16 at 10:29; Status DC Diphenhydramine HCl (Benadryl) 25 mg Q6H PRN PO ITCHING; Start 12/03/16 at 10:30 ; Stop 12/05/16 at 10:29; Status DC Morphine Sulfate (Morphine 1 Mg/ ml GEODETIC SURVEY DIRECTOR) 30 mg UNSCH IV Last administered on 01:30; Start 12/03/16 at 10:30; Stop 12/05/16 at 10:29; Status DC GEODETIC SURVEY DIRECTOR Dosage Infused (Pha) 1 Q8HR .XX RESPIRATORY RATE LESS THAN 10 Last administered on 12/05/16 05:51; Start 12/03/16 at 14:00; Stop 12/05/16 at 13:59 Miscellaneous Information ALL NURSING DEPARTME... UNSCH PRN .XX SEE LABEL COMMENTS; Start 12/03/16 at 10:07; Stop 12/04/16 at 10:06; Status DC Atorvastatin Calcium (Lipitor) 40 mg HS PO Last administered on 12/04/16 20:42 ; Start 12/03/16 at 21:00 Duloxetine HCl (Cymbalta Dr) 20 mg DAILY PO Last administered on 12/04/16 08:28 ; Start 12/04/16 at 09:00 Losartan Potassium (Cozaar) 100 mg DAILY PO ; Start 12/04/16 at 09:00 Metoprolol Tartrate (Lopressor) 50 mg BID PO Last administered on 12/04/16 20: 42; Start 12/03/16 at 21:00 Non-Formulary Medication 1,200 mg DAILY PO ; Start 12/04/16 at 09:00; Stop at 09:00; Status DC Lactobacillus Acidophilus (Lactinex) 1 tab HS PO Last administered on 12/04/16 20:42; Start 12/03/16 at 21:00 Non-Formulary Medication 1 cap HS PO ; Start 12/03/16 at 21:00; Stop 12/03/16 at 21:00; Status DC Pantoprazole Sodium (Protonix) 40 mg DAILY PO Last administered on 7/6/17at 08: 29; Start 12/04/16 at 09:00 A/P Assessment and Plan A/P Osteoarthritis of the left shoulder status post Left shoulder arthroplasty continue with pain control- management per ortho. anemia- post-op ; will monitor History of hypertension; Continue on Lopressor Cozaar History of hyperlipidemia continue on statins History of depression/anxiety disorder continue on Cymbalta Patient placed on Xarelto for DVT prophylaxis PPI for GI prophylaxis patient states history of reflux in the past nausea- has resolved. Discharge Planning discharge planning per ortho. Alejandrina Velazquez MD Dec 05, 2016 10:38
[2016-12-05 10:52] VITALS: O2SAT 96
[2016-12-05] MEDS: PANTOPRAZOLE SOD 40 MG DELAYED RELEASE TAB PO SCH (11:15)
[2016-12-05] MEDS: RIVAROXABAN 10 MG TAB PO SCH (11:15)
[2016-12-05] MEDS: oxyCODONE/ACETAMINOPHEN 5 MG/325 MG TAB PO PRN (11:16)
[2016-12-05] MEDS: METOPROLOL TARTRATE 50 MG TAB PO SCH (11:16)
[2016-12-05] MEDS: LOSARTAN 50 MG TAB PO SCH (11:17)
[2016-12-05 12:00] VITALS: BP 120/59; PULSE 82; RESP 14; TEMP 97.9; O2SAT 95
--- NOTE | 2016-12-08 11:34 | MD ---
cc: CHRISTO OCASIO SANDRA ADMISSION DATE: 12/03/2016 DISCHARGE DATE: 12/05/2016 ADMITTING DIAGNOSIS Osteoarthritis of the left shoulder with complete rotator cuff tear and pain of the left shoulder. DISCHARGE DIAGNOSIS Osteoarthritis of the left shoulder with complete rotator cuff tear and pain of the left shoulder. HISTORY The patient is a 66-year-old white female with a lengthy history of pain involving her left shoulder extending back at least five years. She had noted the gradual onset of soreness generalized about the shoulder area unrelated to injury or unusual activity. During this interval of time she had conformed to conservative management which included taking both Naprosyn and Percocet for pain management. Her pain persisted for which she was seen by the undersigned physician in March 2014. X-ray studies revealed obvious degenerative changes with pronounced narrowing of the glenohumeral joint. The patient elected to continue with conservative management with medication including Meloxicam 15 mg daily and a course of physical therapy. She continued with this routine over the following few years during which time the pain persisted and included symptoms involving her right shoulder. In October 2015 she underwent a right reverse shoulder arthroplasty experiencing an uneventful recovery thereafter. During this interval of time she noted lingering symptoms involving her left shoulder that became increasingly more symptomatic for which she returned to the office in July of this year reporting obvious difficulty conforming to all activities of daily living. Her x-ray studies revealed obvious degenerative changes with significant compromise of the glenohumeral joint and hypertrophic bony reaction. A CT scan of the left shoulder identified severe glenohumeral joint arthrosis with a linear full-thickness tear involving the distal supraspinatus and infraspinatus tendons. The patient continued to experience pain about her shoulder area for which she expressed her desire to proceed with a more definitive course of treatment. Once again the involvement of reverse shoulder arthroplasty was outlined in detail with emphasis being made that the decision to proceed with surgery would be left entirely to the patient's discretion. The patient indicated that she had definitely arrived at that point in time and expressed her desire to proceed accordingly. In compliance with her wishes she was scheduled for admission at this time in order that left reverse shoulder arthroplasty be accomplished. Her physical examination at the time of admission revealed tenderness generalized about the anterior aspect of the left shoulder without palpable deformity. There was limited mobility of the shoulder joint with the patient able to actively posture her hand above her head but not fully extended it to an overhead orientation. Cross-arm posturing placing the left hand on the right shoulder was actively accomplished. Internal rotation was limited to the posterior waist level, abduction limited to 60 degrees with crepitation about the glenohumeral joint appreciated. Drop arm test was positive. There was weakness of both internal and external rotation. Fitness Trainer strength intact. Sensory intact. HOSPITAL COURSE Prior to admission to the hospital the patient underwent medical evaluation and clearance for surgery as completed by her primary care physician, Dr. Cande Flores. She was taken to the operating room on 03 December 2016 and on that date underwent a left reverse shoulder arthroplasty completed in an uncomplicated manner. The patient was noted to have tolerated her operative procedure well and her postoperative course was stable thereafter. Hemoglobin and hematocrit assessment postoperatively was 10.9 and 31.9 respectively. The patient was progressively mobilized into the guidance of therapy intervention with instructions to limit external rotation to no more than approximately 30-45 degrees for the initial 4-6 weeks postoperatively. The patient otherwise will be encouraged to continue with progressive mobilization as tolerated. Sweat Band Separator was consulted to assist with discharge planning. The patient indicated her desire to be discharged home and continue her rehabilitation on an outpatient basis. Plans were finalized in this regard and pending medical clearance the patient was scheduled for discharge on the second postoperative day at which time she was noted to be maintained in a stable condition. She was scheduled to be seen in office follow-up in approximately four weeks. Her prognosis is favorable DISCHARGE MEDICATIONS 1. Oxycodone 5/325, #60. 2. Aspirin 325 mg, one tablet twice daily for 3 weeks, #40. Christo Ocasio MD NBS/BT /6:42 AM /11:28 AM
== END 2016-12-05 14:56 | disposition home health service (06) | DRG 483 ==
LOC: HSDI 12-03 05:27 → N06A 12-03 16:06
PROVIDERS: ADMIT Orthopaedic Surgery; ATTEND Orthopaedic Surgery
PROC: 0RRK00Z Replacement of Left Shoulder Joint with Reverse Ball and Socket Synthetic Substitute, Open Approach (ICD-10-PCS; principal; 2016-12-03 06:47)
DX: M19.012 Primary osteoarthritis, left shoulder (principal); Z68.42 Body mass index [BMI] 45.0-49.9, adult; I10 Essential (primary) hypertension; E78.5 Hyperlipidemia, unspecified; F32.9 Major depressive disorder, single episode, unspecified; F41.9 Anxiety disorder, unspecified; K21.9 Gastro-esophageal reflux disease without esophagitis; M75.102 Unspecified rotator cuff tear or rupture of left shoulder, not specified as traumatic; E78.00 Pure hypercholesterolemia, unspecified; D64.9 Anemia, unspecified; E66.9 Obesity, unspecified
CPT/HCPCS: 73020; 85014; 85018; 88305; 88311; 94150; C1776; J0131; J0690; J1100; J2250; J2270; J2370; J2405; J2710; J2795; J3010; J7050; J7120; J8501

== ENCOUNTER → 2016-11-12 | Outpatient (CLI) | payer MEDICARE ==
[2016-11-12 12:01] LABS: AUTOMATED NEUTROPHIL # 3.7 TH/MM3 (1.8-7.7); BASOPHIL % 0.7 % (0.0-2.0); EOSINOPHIL # 0.2 TH/MM3 (0-0.4); EOSINOPHIL % 3.3 % (0.0-4.0); HEMATOCRIT 37.3 % (35.0-46.0); HEMO FLAGS DIFF FINAL; LYMPHOCYTE # 1.5 TH/MM3 (1.0-4.8); MEAN CELL VOLUME 85.6 FL (80.0-100.0); MEAN CORPUSCULAR HEMOGLOBIN 29.3 PG (27.0-34.0); MEAN CORPUSCULAR HGB CONC 34.3 % (32.0-36.0); MONO % 5.9 % (0.0-8.0); NEUT % 64.1 % (16.0-70.0); PLATELET COUNT 208 TH/MM3 (150-450); RED BLOOD COUNT 4.36 MIL/MM3 (4.00-5.30); RED CELL DISTRIBUTION WIDTH 14.4 % (11.6-17.2); WHITE BLOOD COUNT 5.8 TH/MM3 (4.0-11.0)
[2016-11-12 12:06] LABS: INTERNATIONAL NORMALIZED RATIO 0.9 RATIO; PROTHROMBIN TIME - PATIENT 9.8 SEC (9.8-11.6)
[2016-11-12 12:09] LABS: BACTERIA, URINE RARE /hpf; BLOOD, URINE NEG (NEG); GLUCOSE,URINE NEG (NEG); KETONE, URINE NEG (NEG); MUCUS URINE FEW /lpf (OCC); NITRITE,URINE NEG (NEG); PH, URINE 6.5 (5.0-8.5); SQUAMOUS EPITHELIAL CELL URINE 4 /hpf (0-5); URINE COLOR YELLOW (YELLW/STRAW)
[2016-11-12 12:13] LABS: COMMENT (UR) CATH-CULTURE IND; CULTURE IF INDICATED CATH CULTURE IND
[2016-11-12 12:25] LABS: BICARBONATE 27.1 MEQ/L (21.0-32.0)
--- NOTE | 2016-11-12 12:55 | RADRPT ---
EXAM DATE/TIME: 11/12/2016 10:47 [facility] COMPARISON: SHOULDER RIGHT (1VW), October 31, 2015, 11:11. INDICATIONS : Evaluate for pneumothorax, pneumonia, and communicable disease. Pre op left shoulder replacement. MEDICAL HISTORY : None. SURGICAL HISTORY : None. ENCOUNTER: Initial ACUITY: 1 day PAIN SCORE: 0/10 LOCATION: chest FINDINGS: The heart is mildly enlarged. The lungs are clear. The visualized osseous structures demonstrate a ri ght shoulder arthroplasty. There are dense degenerative changes on the left.CONCLUSION: 1. Mild cardiomegaly. Chance Garvin MD on November 12, 2016 at 12:50 Board Certified Radiologist. This report was verified electronically.
--- NOTE | 2016-11-13 15:18 | EKG ---
Date Performed: 11/12/2016 Time Performed: 10:12:29 PTAGE: 66 years EKG: SINUS BRADYCARDIA BORDERLINE ECG Compared to prior tracing no significant change PREVIOUS TRACING : 10/16/2015 10.39 DOCTOR: Gus Torres Interpretating Date/Time 11/13/2016 15:16:32
== END ==
LOC: CPRE 09:45
PROVIDERS: ATTEND Orthopaedic Surgery
DX: Z01.810 Encounter for preprocedural cardiovascular examination (principal); Z01.811 Encounter for preprocedural respiratory examination; Z01.812 Encounter for preprocedural laboratory examination; M19.012 Primary osteoarthritis, left shoulder; R00.1 Bradycardia, unspecified; R94.31 Abnormal electrocardiogram [ECG] [EKG]; R82.99 Other abnormal findings in urine
CPT/HCPCS: 36415; 71020; 80048; 81001; 85025; 85610; 87086; 93005

== ENCOUNTER → 2017-06-30 | Outpatient (CLI) | payer MEDICARE ==
[~2017-06-30] MED LIST changes: -ASPI-110 PO; +ASPI-183 PO; -ASPI325T PO; -COEN400C PO; -COZA100T PO; -LIPI40TA PO; -OMEG12002 PO; -OMEP20CA5 PO; -OXYC-360 PO; -OXYC1SOL5 PO; +OXYC1TAB63 PO; +UBID200C3 PO
[2017-06-30 12:26] LABS: ALBUMIN 4.2 GM/DL (3.4-5.0); AST (GOT) 20 U/L (15-37); BICARBONATE 31.4 MEQ/L (21.0-32.0); BLOOD UREA NITROGEN 31 MG/DL (7-18); CALCIUM 9.4 MG/DL (8.5-10.1); CHLORIDE 99 MEQ/L (98-107); CREATININE 1.38 MG/DL (0.50-1.00); GLOMERULAR FILTRATION RATE 38 ML/MIN (>89); GLUCOSE,FASTING 105 MG/DL (74-99); SODIUM (NA) 134 MEQ/L (136-145)
[2017-06-30 12:28] LABS: ALT (GPT) 23 U/L (10-53); CHOLESTEROL 168 MG/DL (120-200); TRIGLYCERIDES 113 MG/DL (42-150)
[2017-06-30 12:29] LABS: ALKALINE PHOSPHATASE 69 U/L (45-117); CHOLESTEROL/ HDL RATIO 2.44 RATIO; HDL CHOLESTEROL 68.6 MG/DL (40.0-60.0); LDL CHOLESTEROL 77 MG/DL (0-99); TOTAL BILIRUBIN ADULT 0.7 MG/DL (0.2-1.0); TOTAL PROTEIN 7.3 GM/DL (6.4-8.2)
== END ==
LOC: CLAB 11:37
PROVIDERS: ATTEND Family Medicine
DX: I10 Essential (primary) hypertension (principal); N18.3 Chronic kidney disease, stage 3 (moderate); E78.2 Mixed hyperlipidemia; K21.9 Gastro-esophageal reflux disease without esophagitis; M10.00 Idiopathic gout, unspecified site; Z68.42 Body mass index [BMI] 45.0-49.9, adult
CPT/HCPCS: 36415; 80053; 80061; 84550